=== PATIENT | male | born 1990 | race Caucasian/White ===

== ENCOUNTER 2018-02-24 11:34 | Emergency (ER) | payer SELFPAY ==
[~2018-02-24] VITALS: Ht 170.2 cm; Wt 75.0 kg
[2018-02-24] MEDS ORDERED: IBUPROFEN 800 MG TABLET PO ONE (14:00)
[2018-02-24] MEDS ORDERED: HYDROCODONE/ACETAMINOPHEN 5-325 MG TABLET PO ONE (14:00)
[2018-02-24 16:44] VITALS: BP 138/78
== END 2018-02-24 16:46 | disposition home or self-care (01) ==
LOC: EMS 11:36
DX: S13.4XXA Sprain of ligaments of cervical spine, initial encounter (principal); S33.5XXA Sprain of ligaments of lumbar spine, initial encounter; R51 Headache; V49.49XA Driver injured in collision with other motor vehicles in traffic accident, initial encounter; Y93.89 Activity, other specified; Y92.89 Other specified places as the place of occurrence of the external cause; Y99.8 Other external cause status
CPT/HCPCS: 70450; 72125; 72131; 99284